=== PATIENT | male | born 1975 | race Caucasian/White ===

== ENCOUNTER 2023-03-13 14:31 | Emergency (ER) | payer OTHER ==
[2023-03-13] MEDS ORDERED: Sodium Chloride 0.9% 10 ML Syringe FLUSH PRN (14:34)
[2023-03-13 14:43] LABS: BASOPHILS ABSOLUTE AUTO 0.1 x10-3/uL (0.0-0.3); BASOPHILS PERCENT AUTO 0.9 % (0.3-3.8); EOSINOPHILS ABSOLUTE AUTO 0.4 x10-3/uL (0.0-0.6); EOSINOPHILS PERCENT AUTO 4.2 % (0.1-6.8); HEMATOCRIT 48.6 % (38.3-50.1); HEMOGLOBIN 16.5 g/dL (12.9-17.7); LYMPHOCYTES ABSOLUTE AUTO 3.7 x10-3/uL (0.5-4.5); LYMPHOCYTES PERCENT AUTO 41.9 % (15.8-45.3); MEAN CORPUSCULAR HEMOGLOBIN 31.7 pg (27.0-33.3); MEAN CORPUSCULAR VOLUME 93.1 fL (80.8-98.7); MEAN PLATELET VOLUME 6.5 fL (6.7-11.0); MONOCYTES ABSOLUTE AUTO 0.6 x10-3/uL (0.0-1.2); MONOCYTES PERCENT AUTO 7.1 % (5.5-15.2); NEUTROPHILS PERCENT AUTO 45.9 % (40.3-71.8); PLATELET COUNT,PLT 281 x10(3)uL (117-477); RED BLOOD CELL COUNT 5.22 x10(6)uL (3.90-5.90); RED CELL DISTRIBUTION WIDTH 13.6 % (12.4-15.0); WHITE BLOOD CELL COUNT,WBC 8.8 x10-3/uL (3.2-10.1)
[2023-03-13 14:50] LABS: CHLORIDE,CL 106 mmol/L (100-110); ESTIMATED GFR 94 mL/min (>60); POTASSIUM,K 4.3 mmol/L (3.5-5.3); SODIUM,NA 143 mmol/L (135-145)
[2023-03-13 14:57] LABS: INR 0.95 (1.00-1.24); PROTHROMBIN TIME 9.8 sec (9.0-11.1); PTT,PARTIAL THROMBOPLSTIN TIME 23.3 SECONDS (24.4-33.2)
[2023-03-13 15:01] LABS: ALANINE AMINOTRANSFERASE,ALT 31 U/L (12-36); ALBUMIN 3.8 g/dL (3.5-5.2); ALKALINE PHOSPHATASE 64 IU/L (56-112); ASPARTATE AMNIOTRANSFERASE,AST 14 IU/L (5-25); BILIRUBIN TOTAL 0.2 mg/dL (0.1-1.3); PROTEIN TOTAL,TP 7.5 g/dL (6.0-8.0)
[2023-03-13 15:10] LABS: BLOOD UREA NITROGEN,BUN 10 mg/dL (7-18); CALCIUM 9.2 mg/dL (8.6-10.2); CARBON DIOXIDE,CO2 28 mmol/L (21-32); GLUCOSE RANDOM 84 mg/dL (80-116)
[2023-03-13] MEDS ORDERED: Cyclobenzaprine 10 MG Tab PO ONE (15:40)
[2023-03-13] MEDS ORDERED: Ibuprofen 800 MG Tab PO ONE (15:40)
[2023-03-13] MEDS ORDERED: Acetaminophen 500 MG Tab PO ONE (15:40)
== END 2023-03-13 15:54 | disposition home or self-care (01) ==
LOC: FB.ED 14:31
DX: S39.012A Strain of muscle, fascia and tendon of lower back, initial encounter (principal); G81.90 Hemiplegia, unspecified affecting unspecified side; F10.129 Alcohol abuse with intoxication, unspecified
CPT/HCPCS: 36415; 70450; 71045; 72100; 80053; 80307; 82947; 84484; 85025; 85610; 85730; 93005; 99285; A9270-GY